=== PATIENT | female | born 1970 | race Caucasian/White ===

== ENCOUNTER → 2017-01-05 | Outpatient (CLI) | payer OTHER ==
[~2017-01-05] MED LIST: GADOBUTROL 10 MMOL/10 ML VIAL ONE
== END | disposition home or self-care (01) ==
LOC: CFH 09:14
PROVIDERS: ATTEND Neurological Surgery
DX: D49.7 Neoplasm of unspecified behavior of endocrine glands and other parts of nervous system (principal); R90.82 White matter disease, unspecified
CPT/HCPCS: 70553; A9585

== ENCOUNTER → 2017-02-02 | Outpatient (CLI) | payer OTHER ==
[~2017-02-02] MED LIST changes: -GADOBUTROL 10 MMOL/10 ML VIAL ONE; +[UNRECOGNIZED DRUG - REMARK] PO
[2017-02-02 14:37] LABS: EPI LOT# 5695218
[2017-02-02 14:43] LABS: HCT (PFA) 39.9 % (34.6-47.8); HEMOGLOBIN 13.4 g/dL (11.7-16.4); PLATELET (PFA) 299 x10^3/uL (130-400); WHITE BLOOD COUNT 6.7 x10^3/uL (3.4-10)
[2017-02-02 14:54] LABS: BLOOD UREA NITROGEN 11 mg/dL (7-18)
[2017-02-02 14:58] LABS: ASPARTATE AMINO TRANSFERASE 11 U/L (15-37)
[2017-02-02 15:36] LABS: EPI CARTRIDGE 96 SECONDS (72-193)
== END | disposition home or self-care (01) ==
LOC: STAR 13:45
PROVIDERS: ATTEND Neurological Surgery
DX: Z01.818 Encounter for other preprocedural examination (principal); R94.31 Abnormal electrocardiogram [ECG] [EKG]; D35.2 Benign neoplasm of pituitary gland; R79.1 Abnormal coagulation profile
CPT/HCPCS: 36415; 71020; 80053; 81003; 85014; 85025; 85049; 85576; 85610; 85730; 93005

== ENCOUNTER 2017-02-10 05:42 | Inpatient (IN) | payer OTHER ==
[2017-02-02 07:16] VITALS: BP 117/82
[~2017-02-10] VITALS: Ht 177.8 cm; Wt 84.8 kg
[2017-02-10] MEDS ORDERED: LACTATED RINGERS 1,000 ML IV SCH (06:11)
[2017-02-10] MEDS ORDERED: LIDOCAINE 1%, 2ML ONE (06:12)
[2017-02-10 06:13] LABS: HCG UR LOT HCG7030192
[2017-02-10 06:21] LABS: HCG UR OBC PASS
[2017-02-10] MEDS ORDERED: LIDOCAINE 1%, 2ML SQ PRN (06:30)
[2017-02-10] MEDS ORDERED: FENTANYL PF 100 MCG/2ML ONE ×6 (06:42→09:46)
[2017-02-10] MEDS ORDERED: MIDAZOLAM 1 MG/ML, 2ML ONE (06:42)
[2017-02-10] MEDS ORDERED: ROCURONIUM 10 MG/ML ONE ×2 (06:46→07:29)
[2017-02-10] MEDS ORDERED: PROPOFOL 10 MG/ML, 20ML ONE (06:46)
[2017-02-10] MEDS ORDERED: CEFAZOLIN 1,000 MG ONE ×2 (06:49)
[2017-02-10] MEDS ORDERED: LIDOCAINE/PF 1%, 30ML ONE (07:02)
[2017-02-10] MEDS ORDERED: COCAINE TOPICAL SOLN 4%, 4ML ONE (07:03)
[2017-02-10] MEDS ORDERED: EPINEPHRINE 1 MG/ML, 1ML ONE (07:03)
[2017-02-10] MEDS ORDERED: BACITRACIN OINT 500U/GM, 15 GM ONE (07:03)
[2017-02-10] MEDS ORDERED: BACITRACIN 50,000 UNIT ONE (07:03)
[2017-02-10] MEDS ORDERED: THROMBIN 5,000 UNIT VIAL TP ONE (07:03)
[2017-02-10] MEDS ORDERED: LABETALOL 5MG/ML, 20ML IV PRN (07:30)
[2017-02-10] MEDS ORDERED: ONDANSETRON 2MG/ML, 2ML IVPush PRN (07:30)
[2017-02-10] MEDS ORDERED: OXYcodone 5 MG/5 ML ORAL.SOL UDC PO PRN (07:30)
[2017-02-10] MEDS ORDERED: ACETAMINOPHEN 325 MG TABLET PO PRN ×2 (07:30→16:24)
[2017-02-10] MEDS ORDERED: hydrALAzine 20 MG/ML, 1ML IV PRN (07:30)
[2017-02-10] MEDS ORDERED: MEPERIDINE/PF 25MG/0.5ML IVPush PRN (07:30)
[2017-02-10] MEDS ORDERED: PROMETHAZINE 25 MG/ML, 1ML IV PRN (07:30)
[2017-02-10] MEDS ORDERED: ONDANSETRON 2MG/ML, 2ML ONE ×2 (08:06)
[2017-02-10] MEDS ORDERED: DEXAMETHASONE 4 MG/ML, 1ML ONE ×2 (08:06)
[2017-02-10] MEDS ORDERED: GLYCOPYRROLATE 0.2MG/1ML, 5ML ONE (08:17)
[2017-02-10] MEDS ORDERED: NEOSTIGMINE 1 MG/ML, 10ML ONE (08:17)
[2017-02-10] MEDS ORDERED: COCAINE TOPICAL SOLN 4%, 4ML TP ONE (08:41)
[2017-02-10] MEDS ORDERED: OXYC-302 PO (08:54)
[2017-02-10] MEDS ORDERED: PROMETHAZINE 25 MG/ML, 1ML ONE (09:42)
[2017-02-10] MEDS: FENTANYL PF 100 MCG/2ML IV PRN ×3 (09:45→10:00)
[2017-02-10] MEDS ORDERED: ACETAMINOPHEN 650 MG/20.3 ML UDC ONE (10:14)
[2017-02-10] MEDS ORDERED: HYDROmorphone 1 MG/ML, 1ML ONE (10:15)
[2017-02-10] MEDS ORDERED: OXYcodone 5 MG/5 ML ORAL.SOL UDC ONE (10:15)
[2017-02-10] MEDS: HYDROmorphone 1 MG/ML, 1ML IV PRN ×2 (10:18→10:26)
[2017-02-10] MEDS ORDERED: MAGNESIUM HYDROXIDE 8%, 30ML UDC PO PRN (12:00)
[2017-02-10] MEDS ORDERED: DESMOPRESSIN 4 MCG/ML IVPush ONE (12:00)
[2017-02-10] MEDS ORDERED: FENTANYL PF 100 MCG/2ML IV PRN (12:00)
[2017-02-10] MEDS ORDERED: ONDANSETRON 2MG/ML, 2ML IV PRN (12:00)
[2017-02-10] MEDS ORDERED: OXYcodone/APAP 5/325MG TABLET PO PRN (12:00)
[2017-02-10] MEDS ORDERED: ACETAMINOPHEN 650 MG SUPP PR PRN (12:00)
[2017-02-10] MEDS: morphine SULFATE 10 MG/ML, 1ML IV PRN ×2 (13:09→16:47)
[2017-02-10] MEDS: D5%-0.9% NACL+KCL 20MEQ 1,000 ML IV SCH (13:25)
[2017-02-10] MEDS: HYDROcodone/APAP 5/325 TABLET PO PRN ×2 (16:47→23:42)
[2017-02-10] MEDS: CEFUROXIME 1.5 GM in SODIUM CHLORIDE 0.9% 50 ML IVPB SCH ×2 (16:47→23:42)
[2017-02-11] MEDS: D5%-0.9% NACL+KCL 20MEQ 1,000 ML IV SCH (01:08)
[2017-02-11 04:00] VITALS: BP 98/55
[2017-02-11 05:00] LABS: BLOOD UREA NITROGEN 6 mg/dL (7-18)
[2017-02-11] MEDS: HYDROcodone/APAP 5/325 TABLET PO PRN ×3 (05:56→14:20)
[2017-02-11] MEDS ORDERED: SENNA/DOCUSATE TABLET PO SCH (09:00)
[2017-02-11] MEDS ORDERED: HYDROCORTISONE 20 MG TABLET PO SCH (11:00)
[2017-02-11] MEDS ORDERED: HYDR10TA11 PO ×2 (14:50→14:51)
[2017-02-11] MEDS ORDERED: HYDROCORTISONE 10 MG TABLET PO SCH (21:00)
== END 2017-02-11 15:00 | disposition home or self-care (01) | DRG 615 ==
LOC: ORIP 05:42 → EDSTATUS 07:30 → CCU 11:29
PROVIDERS: ADMIT Neurological Surgery; ATTEND Neurological Surgery
PROC: 0GB00ZZ Excision of Pituitary Gland, Open Approach (ICD-10-PCS; principal; 2017-02-10 07:30)
DX: D35.2 Benign neoplasm of pituitary gland (principal)
CPT/HCPCS: 36415; 70486; 80048; 81025; 82533; 87081; 88305; C1713; J0171; J0690; J0697; J1100; J1170; J2250; J2405; J2550; J2704; J2710; J3010; J3490; A4648; C1781; J2270; J3480; J7120

== ENCOUNTER → 2017-05-11 | Outpatient (CLI) | payer OTHER ==
[~2017-05-11] MED LIST changes: +GADOBUTROL 10 MMOL/10 ML VIAL ONE; +HYDR10TA11 PO; +OXYC-302 PO
== END | disposition home or self-care (01) ==
LOC: CFH 09:02
PROVIDERS: ATTEND Neurological Surgery
DX: D49.7 Neoplasm of unspecified behavior of endocrine glands and other parts of nervous system (principal); R90.82 White matter disease, unspecified
CPT/HCPCS: 70553; A9585

== ENCOUNTER → 2018-05-14 | Outpatient (CLI) | payer OTHER | END | disposition home or self-care (01) | LOC: CFH 09:18 | PROVIDERS: ATTEND Neurological Surgery | DX: D49.7 Neoplasm of unspecified behavior of endocrine glands and other parts of nervous system (principal) | CPT/HCPCS: 70553; A9585 ==

== ENCOUNTER → 2020-02-26 | Outpatient (CLI) | payer OTHER ==
[~2020-02-26] MED LIST changes: -GADOBUTROL 10 MMOL/10 ML VIAL ONE; +HYDR-3590 PO; -HYDR10TA11 PO
== END | disposition home or self-care (01) ==
LOC: CFH 07:14
PROVIDERS: ATTEND Obstetrics & Gynecology Gynecology
DX: N64.4 Mastodynia (principal)
CPT/HCPCS: 76642; 77066; G0279